=== PATIENT | female | born 1990 | race Hispanic/Latino ===

== ENCOUNTER 2018-01-25 08:44 | Emergency (ER) | payer OTHER ==
[~2018-01-25] VITALS: Ht 157.5 cm; Wt 83.9 kg
[2018-01-25 10:29] LABS: BILIRUBIN,URINE NEGATIVE (NEGATIVE); CLARITY,URINE CLEAR (CLEAR); COLOR,URINE YELLOW (YELLOW); KETONES,URINE NEGATIVE (NEGATIVE); LEUKOCYTE ESTERASE ,URINE NEGATIVE (NEGATIVE); NITRITE,URINE NEGATIVE (NEGATIVE); URINE UROBILINOGEN 0.2 mg/dL (0.2 - 1)
[2018-01-25 10:30] LABS: PROTEIN,URINE DIPSTICK TRACE (NEGATIVE)
[2018-01-25 10:42] LABS: BACTERIA,URINE RARE /HPF; EPITHELIAL CELLS,URINE FEW /LPF; MUCUS,URINE MANY (RARE); RBC,URINE 21-50 /HPF (0-5); WBC,URINE (MAN) 0-5 /HPF (0-5)
[2018-01-25 11:04] LABS: BASOPHILS % 0.2 % (0.0-1.0); EOSINOPHILS % 0.3 % (0.0-6.0); HEMATOCRIT 34.6 % (34.2-44.1); HEMOGLOBIN 10.9 g/dL (12.0-16.0); LYMPHOCYTES # (AUTO) 1.3 (1.0-3.2); LYMPHOCYTES % 12.2 % (18.0-39.1); MEAN CORPUSCULAR HGB CONC 31.5 g/dL (31-35); MEAN CORPUSCULAR VOLUME 82.4 fL (81-99); MONOCYTES # (AUTO) 0.4 (0.2-0.8); MONOCYTES % 3.8 % (4.4-11.3); NEUTROPHILS # (AUTO) 8.7 (2.1-6.9); NEUTROPHILS % 83.3 % (38.7-80.0); PLATELET COUNT 341 x10e3/uL (140-360); RED CELL DISTRIBUTION WIDTH 16.3 % (11.7-14.4)
[2018-01-25 11:19] LABS: ALANINE AMINOTRANSFERASE 16 IU/L (0-55); ALBUMIN/GLOBULIN RATIO 1.3 (0.8-2.0); ALKALINE PHOSPHATASE 60 IU/L (40-150); ANION GAP 10.7 mmol/L (8-16); BLOOD UREA NITROGEN 13 mg/dL (7-26); BUN/CREATININE RATIO 17 (6-25); CARBON DIOXIDE 24 mmol/L (22-29); CHLORIDE 105 mmol/L (98-107); CREATININE, SERUM 0.76 mg/dL (0.57-1.11); EST GLOMERULAR FILTRATION RATE > 60 ML/MIN (60-); GLUCOSE 105 mg/dL (74-118); POTASSIUM 3.7 mmol/L (3.5-5.1); SODIUM 136 mmol/L (136-145)
--- NOTE | 2018-01-25 12:09 | Diagnostic Imaging Report ---
PROCEDURE: CT ABDOMEN AND PELVIS WITHOUT CONTRAST TECHNIQUE: The abdomen and pelvis were scanned utilizing a multidetector helical scanner from the diaphragm to the lesser trochanter after the oral administration of water. No IV contrast was administered per protocol. Coronal and sagittal multiplanar reformations were obtained. COMPARISON: None. INDICATIONS: LEFT FLANK PAIN FINDINGS: ABSENCE OF INTRAVENOUS CONTRAST DECREASES SENSITIVITY FOR DETECTION OF FOCAL LESIONS AND VASCULAR PATHOLOGY. LOWER THORAX: Unremarkable. HEPATOBILIARY: No focal hepatic lesions. No biliary ductal dilatation. Gallbladder is unremarkable. SPLEEN: No splenomegaly. PANCREAS: No focal masses or ductal dilatation. ADRENALS: No adrenal nodules. KIDNEYS/URETERS: Right: 4-5 mm nonobstructing calculus in the inferior pole (series 3, image 65). No other renal or any ureteral calculi. No hydronephrosis or obstruction. No renal contour abnormality. Left: 4-5 mm calculus in the distal left ureter just proximal to the UVJ (series 3, image 37). No other ureteral or any renal calculi. No hydronephrosis or hydroureter. Partial duplication of the left renal collecting system, with ureteral duplication. Both ureters appear to join in the proximal aspect, however, visualization is difficult. No renal contour abnormalities. PELVIC ORGANS/BLADDER: No wall thickening, or bladder calculi. No focal lesions. Uterus is unremarkable. Small amount of fluid in the endometrial cavity. No adnexal masses. PERITONEUM / RETROPERITONEUM: No free air or fluid. LYMPH NODES: No lymphadenopathy. VESSELS: Unremarkable for noncontrast exam. GI TRACT: No bowel dilation or evidence of obstruction. Appendix is well identified and normal in caliber. BONES AND SOFT TISSUES: No aggressive lytic lesion. Soft tissues are unremarkable. IMPRESSION: 1. 4-5 mm calculus in the distal left ureter just proximal to the UVJ. No other ureteral calculi. No left hydronephrosis or hydroureter. 2. Partial duplication of the left renal collecting system. 3. 4-5 mm nonobstructing calculus in the inferior pole of the right kidney. No right ureteral calculi, hydronephrosis, or obstruction. Jose Humphrey M.D. Dictated by: Jose Humphrey M.D. on 01/25/2018 at 12:09 Electronically approved by: oJse Humphrey M.D. on 01/25/2018 at 12:09
[2018-01-25] MEDS ORDERED: KETOROLAC TROMETHAMINE 30 MG/ML VIAL IV STA (12:22)
== END 2018-01-25 14:26 | disposition home or self-care (01) ==
LOC: ER 08:44
DX: R31.9 Hematuria, unspecified (principal); R11.2 Nausea with vomiting, unspecified; N20.0 Calculus of kidney
CPT/HCPCS: 36415; 74176; 80053; 81001; 84702; 85025; 99283; J1885